=== PATIENT | male | born 1965 | race Caucasian/White ===

== ENCOUNTER 2019-10-22 15:57 | Emergency (ER) | payer SELFPAY ==
[~2019-10-22] VITALS: Ht 167.6 cm; Wt 68.0 kg
[2019-10-22 16:12] VITALS: BP 124/94
--- NOTE | 2019-10-22 16:16 | NUR ---
PT IN WHEELCHAIR IN THE LOBB
--- NOTE | 2019-10-22 17:33 | NUR ---
W/C ASSIST TO BED 01
--- NOTE | 2019-10-22 17:46 | NUR ---
54 Y/O M BIB AMBULANCE FROM [facility] FOR ETOH. A&OX2. PATIENT STATES PAIN OF 0/10 AT THIS TIME; VSS; PATIENT POSITIONED FOR COMFORT; HOB ELEVATED; BEDRAILS UP X2; BED DOWN. ER MD MADE AWARE OF PT STATUS. PT IS ON MONITOR.
--- NOTE | 2019-10-22 18:35 | NUR ---
PT IS EATING [facility] IN THE BED W/ VSS.
[2019-10-22 18:53] VITALS: BP 122/78
[2019-10-22] MEDS ORDERED: LORazepam 2 MG/ML VIAL IM ONE (19:05)
[2019-10-22] MEDS ORDERED: diphenhydrAMINE 50 MG CAP PO ONE (19:05)
--- NOTE | 2019-10-22 19:08 | NUR ---
REPORT FROM LEXY BALLESTEROS
--- NOTE | 2019-10-22 19:12 | NUR ---
Pt report given to LESLI Ortega. Transfer of care at this time.
--- NOTE | 2019-10-22 19:25 | NUR ---
PT REFUSED MEDICATION, DR REID NOTIFIED, PER DR REID PT OKAY TO BE D/C'D
--- NOTE | 2019-10-22 20:20 | NUR ---
Patient discharged, REFUSED VITAL SIGNS. Written and verbal after care instructions given and explained. Patient verbalized understanding. Ambulatory with steady gait. All questions addressed prior to discharge. Advised to follow up with PMD. PT GIVEN A SHIRT, AND A BUS PASS. PT RECIEVED FOOD WHILE IN ER.
== END 2019-10-22 20:20 | disposition home or self-care (01) ==
LOC: MED 15:57
DX: F10.120 Alcohol abuse with intoxication, uncomplicated (principal); Y90.9 Presence of alcohol in blood, level not specified; Z02.89 Encounter for other administrative examinations
CPT/HCPCS: 99283; Q0163; J2060